=== PATIENT | female | born 1960 | race Caucasian/White ===

== ENCOUNTER → 2017-07-01 | Day surgery (SDC) | payer OTHER ==
[~2017-07-01] VITALS: Ht 165.1 cm; Wt 71.2 kg
[~2017-07-01] MED LIST: AUGMENTIN 875-1 EACH PO; HARVONI 90-4001 EACH PO; IBUPROFEN600 M1 PO; METHADONE10 MG/1 M2 PO; OXYCODONE-ACET1 EACH PO; ZOFRAN ODT4 M1 SL
--- NOTE | 2017-07-01 07:12 | History & Physical Pre-Op ---
General Information and HPI History of Present Illness: Ellie is a 56-year-old female with a history of a nonhealing ulcer to the anterior aspect of her left ankle. The patient is recently status post I&D with negative pressure wound therapy. Patient has been seen in the wound center for weekly debridements and wound VAC changes. The patient's wound bed is now optimized for definitive closure consisting of split-thickness skin grafting. 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 Heart sounds rate and rhythm regular. Lower extremity physical exam demonstrates intact pedal pulses bilaterally. Pulses dorsalis pedis and posterior tibial arteries are palpable bilaterally. Patient without any sensory motor deficits. Deep tendon reflexes grossly intact. Patient noted to have a 6 cm x 6 cm stage II ulceration anterior aspect the left ankle. The wound bed is noted to be largely granular. There is superficial slough overlying the wound bed. No probing or undermining identified. Serous drainage identified. Assessment/Plan Assessment/Plan: Nonhealing ulcer anterior aspect left ankle. A lengthy discussion reviewing both surgical and conservative options the patient bedside and the patient elects to go forward surgery despite the risks. As Ranked By This Provider Problem List: 1. Non-pressure chronic ulcer of left ankle with fat layer exposed Attending MD Review Statement Attending Statement Attending MD Statement: examined this patient
--- NOTE | 2017-07-01 10:25 | Operative Report ---
Operative/Inv Procedure Report Surgery Date: 07/01/17 Name of Procedure: 1 split-thickness skin graft anterior left ankle measuring 6 cm x 6 cm 2 intraoperative application of negative pressure wound therapy 3 intraoperative administration of ankle block anesthesia Pre-Operative Diagnosis: 1 chronic, nonhealing ulcer anterior left ankle Post-Operative Diagnosis: The same Estimated Blood Loss: scant Surgeon/Pegger Dobby Looms: Michael JACOBSEN,Faraz Clinton DPM Anesthesia: laryngeal mask airway, block Operative/Procedure Note Note: After obtaining informed consent the patient was brought to the operating room and placed on the operating table in the supine position. The patient isn't securely fastened to the operating table utilizing safety belt. After administration of laryngeal mask airway anesthesia, 10 mL of 0.5% Marcaine plain was infiltrated about the patient's left ankle. The left foot and ankle and lower extremity was then scrubbed prepped and draped in usual manner. Attention directed the anterior left ankle, where a grade 2 lesion was identified at the anterior aspect measuring 6 cm x 6 cm. Wound bed was noted to be uniformly granulated with superficial slough overlying. There is no probing or undermining identified. Minimal serous drainage identified. Curettage was utilized to debride the superficial slough. Next, the wound was irrigated with 3 L of normal sterile saline fissure 50,000 units bacitracin utilizing the pulse lavage device. Following this, a 17,000 of an inch split-thickness skin graft was elevated from the lateral left leg and meshed a ratio of 1/2-1. It was then fixated to the recipient site with skin romina at the margins. This followed by the application of Adaptic and negative pressure wound therapy. The donor site was then dressed with bacitracin Xeroform Kerlix. Kerlix and an Ander wrap was placed about the patient's left lower extremity. The patient is noted tolerate both procedure and anesthesia well and the patient was transported from the operating room to recovery with vital signs stable.
== END ==
LOC: STS 02:16
DX: L97.328 Non-pressure chronic ulcer of left ankle with other specified severity (principal); Z87.891 Personal history of nicotine dependence
CPT/HCPCS: J2001; J2250; J3490